=== PATIENT | female | born 1985 ===

== ENCOUNTER 2019-02-21 19:09 | Observation (INO) | payer MEDICAID ==
[2019-02-21 20:44] LABS: BASO # 0.1 K/uL (0.0-0.2); BASO % 0.5 % (0.0-2.0); EOS # 0.2 K/uL (0.0-0.7); EOS % 1.8 % (0.0-4.0); LYMPH # 2.1 K/uL (1.0-4.3); LYMPH % 16.4 % (20.0-40.0); MEAN CELL VOLUME 77.7 fL (81.0-99.0); MEAN CORPUSCULAR HEMOGLOBIN 25.6 pg (27.0-31.0); MEAN PLATELET VOLUME 8.5 fL (7.2-11.7); MONO # 0.9 K/uL (0.0-0.8); MONO % 7.2 % (0.0-10.0); NEUT # 9.7 K/uL (1.8-7.0); NEUT % 74.1 % (50.0-75.0); RBC 4.3 Mil/uL (3.80-5.20); RED CELL DISTRIBUTION WIDTH 16.9 % (11.5-14.5)
[2019-02-21] MEDS ORDERED: Sodium Chloride 0.9% 1,000 ML IV ONE (20:44)
[2019-02-21] MEDS ORDERED: Sodium Chloride 0.9% 1,000 ML ONE (20:49)
[2019-02-21 20:57] LABS: ALB/GLOB RATIO 1.3 (1.0-2.1); ALBUMIN 4.3 g/dL (3.5-5.0); ALT/SGPT 14 U/L (9-52); AST/SGOT 19 U/L (14-36); BLOOD UREA NITROGEN 12 mg/dL (7-17); GFR NON-AFRICAN AMERICAN > 60
--- NOTE | 2019-02-21 21:40 | C.PDOC ---
Time Seen by Provider: 02/21/19 19:41 Chief Complaint (Nursing): Headache Past Medical History Vital Signs: Last Vital Signs Temp 98.4 F 02/21/19 19:28 Pulse 74 02/21/19 19:28 Resp 14 02/21/19 19:28 BP 100/64 02/21/19 19:28 Pulse Ox 98 02/21/19 19:28 - Medical History PMH: Diabetes (Controlled, lost weight, not taking any medications ), Hyperthyroidism, Hypothyroidism Surgical History: Appendectomy - [facility] INJECT/INFUSE NEC (09/11/14) Family History: States: Unknown Family Hx - Social History Hx Alcohol Use: No Hx Substance Use: No ED Course And Treatment - Laboratory Results Result Diagrams: 02/21/19 20:35 02/21/19 20:35 Lab Results: Total Bilirubin 0.3 mg/dL (0.2-1.3) 02/21/19 20:35 AST 19 U/L (14-36) 02/21/19 20:35 ALT 14 U/L (9-52) 02/21/19 20:35 Alkaline Phosphatase 115 U/L (38-126) 02/21/19 20:35 Total Protein 7.7 g/dL (6.3-8.3) 02/21/19 20:35 Albumin 4.3 g/dL (3.5-5.0) 02/21/19 20:35 Globulin 3.4 gm/dL (2.2-3.9) 02/21/19 20:35 Albumin/Globulin Ratio 1.3 (1.0-2.1) 02/21/19 20:35 O2 Sat by Pulse Oximetry: 98 Medical Decision Making Medical Decision Makin discussed with Dr Wilkerson, recommends admission for brain mri +/- contrast. Disposition - Disposition Disposition: HOSPITALIZED Disposition Time: 04:57 Condition: GOOD Forms: [facility] (Uzbek) - Clinical Impression Clinical Impression: Headache, Sinusitis
[2019-02-21] MEDS ORDERED: Iodixanol 320 mg/ml 150 ml Bottle IV ONE (23:15)
[2019-02-22] MEDS ORDERED: Amoxicillin-Clav 875-125 mg Tab PO STA (04:54)
[2019-02-22] MEDS ORDERED: Amoxicillin-Clav 500-125 mg Tab PO ONE (05:09)
[2019-02-22] MEDS ORDERED: Amoxicillin-Clav 875-125 mg Tab PO ONE (05:12)
--- NOTE | 2019-02-22 05:34 | CP.PCM.HP ---
<Pankaj Crow P - Last Filed: 02/22/19 06:58> Meds Allergies/Adverse Reactions: Allergies Allergy/AdvReac Type Severity Reaction Status Date / Time No Known Allergies Allergy Verified 02/21/19 19:31 Results - Vital Signs Recent Vital Signs: Last Vital Signs Temp 98.4 F 02/22/19 06:00 Pulse 85 02/22/19 06:00 Resp 20 02/22/19 06:00 BP 102/66 02/22/19 06:00 Pulse Ox 96 02/22/19 06:00 - Labs Result Diagrams: 02/21/19 20:35 02/21/19 20:35 Labs: Laboratory Results - last 24 hr 02/21/19 02/21/19 20:35 20:35 WBC 13.0 H RBC 4.30 Hgb 11.0 Hct 33.4 L MCV 77.7 L MCH 25.6 L MCHC 33.0 RDW 16.9 H Plt Count 255 MPV 8.5 Neut % (Auto) 74.1 Lymph % (Auto) 16.4 L Prentiss % (Auto) 7.2 Eos % (Auto) 1.8 Baso % (Auto) 0.5 Neut # (Auto) 9.7 H Lymph # (Auto) 2.1 Prentiss # (Auto) 0.9 H Eos # (Auto) 0.2 Baso # (Auto) 0.1 ESR 53 H Sodium 138 Potassium 4.1 Chloride 102 Carbon Dioxide 29 Anion Gap 11 BUN 12 Creatinine 0.7 Est GFR ( Amer) > 60 Est GFR (Non-Af Amer) > 60 Random Glucose 100 Calcium 9.0 Total Bilirubin 0.3 AST 19 ALT 14 Alkaline Phosphatase 115 Total Protein 7.7 Albumin 4.3 Globulin 3.4 Albumin/Globulin Ratio 1.3 Attending/Attestation - Attestation I have personally seen and examined this patient.: Yes I have fully participated in the care of the patient.: Yes I have reviewed all pertinent clinical information: Yes Notes (Text): 02/22/19 06:59 Assessment * left sided facial pain from acute sinusitis involving maxillary, ethmoid, mastoid air cells, left middle ear * temporal muscle mild spasm due to above * chronic left occipital area pain * H/o cervical OA recent steroid inj about 3 wks back * Obese Plan * Abx augmentin * antiinflammatory, ppi * decongestent * ENT eval * Neurology has been consulted and recommended MRI * See orders for detail. <Di Ortiz P - Last Filed: 02/22/19 07:57> History of Present Illness - History of Present Illness History of Present Illness: H&P for Dr. Crow. 33 year old female presents to ED for severe headache over the L eye for the pa st 2 days. Pain is intermittent and described as heaviness. Treatment with Motrin and Excedrin has provided no relief. Patient also reports intermittent dizziness, nausea, runny nose, subjective fever, chills, and mild L ear pain for the last 2 days. Patient denies eye discharge, slurred speech, vomiting, change in hearing. Patient also reports a L occipital headache for the last 7 months since getting an epidural for childbirth, as well as numbness to her R hand for the past month, for which she is following a back specialist an receives cervical injections. PMHx: headaches, cervical and lumber disc problems-unspecified PSHx: appendectomy at 8 years old, ovarian cyst removal 13 years old Meds: Denies Allergies: NKDA Social: Denies tobacco, alcohol and illicit drugs, works as a cashiers supervisor Family hx: Maternal grandmother-DM; paternal grandmother- stomach cancer PMD: [facility] Review of Systems: -Gen: + subjective fever,+ chills, + headache, No lethargy, No weakness. -HEENT: + dizziness, No change in vision, No change in hearing, No sore throat, No dysphagia, No nasal congestion, No mucous. -Cardio: No chest pain, No palpitations, No lower extremity edema, No orthopnea. -Resp: No cough, No dyspnea, No hemoptysis, No wheezing, No pain on inspiration. -GI: No abdominal pain, + nausea, No vomiting, No diarrhea/constipation, No hematochezia, No hematemesis. -: No dysuria, No urinary freq, No incontinence, No hematuria, No change in urinary stream. -MSK: No back pain, No muscle weakness, No radiating pain. -Skin: No itching, No rash, No lesions. -Neuro: No confusion, + numbness, No tingling, No focal weakness, No syncope. -Psych: No anxiety, No depression, No H/I, No S/I, No hallucinations. Present on Admission - Present on Admission Any Indicators Present on Admission: No Past Patient History - Infectious Disease Hx of Infectious Diseases: None - Past Social History Smoking Status: Never Smoked - NEUROLOGICAL Other/Comment: headaches - ENDOCRINE/METABOLIC Hx Hyperthyroidism: Yes Hx Hypothyroidism: Yes - GENITOURINARY/GYNECOLOGICAL Other/Comment: Ovarian Cyst - PSYCHIATRIC Hx Substance Use: No - SURGICAL HISTORY Hx Appendectomy: Yes - ANESTHESIA Hx Anesthesia: Yes Hx Anesthesia Reactions: Yes Physical Exam - Constitutional Appears: Non-toxic, No Acute Distress - Head Exam Head Exam: ATRAUMATIC, NORMOCEPHALIC - Eye Exam Eye Exam: EOMI, Normal appearance, PERRL. absent: Nystagmus Pupil Exam: NORMAL ACCOMODATION - ENT Exam ENT Exam: Mucous Membranes Moist Additional comments: Tenderness to palpation of L maxillary sinus and L pinna - Neck Exam Neck exam: Positive for: Full Rom, Normal Inspection - Respiratory Exam Respiratory Exam: Clear to Auscultation Bilateral, NORMAL BREATHING PATTERN. absent: Rales, Rhonchi, Wheezes - Cardiovascular Exam Cardiovascular Exam: REGULAR RHYTHM, +S1, +S2 - GI/Abdominal Exam GI & Abdominal Exam: Normal Bowel Sounds, Soft. absent: Tenderness - Neurological Exam Neurological exam: Alert, Oriented x3 Additional comments: Diminished sensation to trigeminal V2 distribution on the L otherwise, cranial nerves intact. 5/5 muscle strength in all extremities, sensation intact in all extremities. - Psychiatric Exam Psychiatric exam: Normal Affect, Normal Mood - Skin Skin Exam: Dry, Normal Color, Warm Results - Vital Signs Recent Vital Signs: Last Vital Signs Temp 98.6 F 02/22/19 03:10 Pulse 88 02/22/19 03:10 Resp 16 02/22/19 03:10 BP 100/63 02/22/19 03:10 Pulse Ox 98 02/22/19 04:58 - Labs Result Diagrams: 02/21/19 20:35 02/21/19 20:35 Labs: Laboratory Results - last 24 hr 02/21/19 02/21/19 20:35 20:35 WBC 13.0 H RBC 4.30 Hgb 11.0 Hct 33.4 L MCV 77.7 L MCH 25.6 L MCHC 33.0 RDW 16.9 H Plt Count 255 MPV 8.5 Neut % (Auto) 74.1 Lymph % (Auto) 16.4 L Prentiss % (Auto) 7.2 Eos % (Auto) 1.8 Baso % (Auto) 0.5 Neut # (Auto) 9.7 H Lymph # (Auto) 2.1 Prentiss # (Auto) 0.9 H Eos # (Auto) 0.2 Baso # (Auto) 0.1 ESR 53 H Sodium 138 Potassium 4.1 Chloride 102 Carbon Dioxide 29 Anion Gap 11 BUN 12 Creatinine 0.7 Est GFR ( Amer) > 60 Est GFR (Non-Af Amer) > 60 Random Glucose 100 Calcium 9.0 Total Bilirubin 0.3 AST 19 ALT 14 Alkaline Phosphatase 115 Total Protein 7.7 Albumin 4.3 Globulin 3.4 Albumin/Globulin Ratio 1.3 Assessment & Plan - Assessment and Plan (Free Text) Assessment: 33 year old female presents with sinusitis Plan: Sinusitis -CT head: Acute on chronic sinusitis, minimal effusion L middle ear (see full report) -Neuro consult -MRI brain -ENT consult -Augmentin 875-125 PO Q12H -[id number] Q6H PRN fever -Ibuprofen 600mg Q6H PRN pain/inflammation -NS @100mls/hour -Oxymetazoline 2 puffs Q12H PPx -Protonix 40 -SCD -Heparin 5000 SC Q8H - Regular diet Discussed with Dr. Mignon Ortiz, PGY1
[2019-02-22 06:08] VITALS: RESP 20
[2019-02-22] MEDS ORDERED: Sodium Chloride 0.9% 1,000 ML IV SCH (06:30)
[2019-02-22] MEDS ORDERED: Oxymetazoline 0.05% Nasal Spray (30 ml) NS SCH (07:15)
--- NOTE | 2019-02-22 08:56 | CP.PCM.PN ---
Subjective - Date & Time of Evaluation Date of Evaluation: 02/22/19 Time of Evaluation: 08:56 - Subjective Subjective: PGY-1 Medicine Progress Note for Dr. Mcclellan Patient seen and examined sitting by bedside this AM. No acute overnight events reported. Patient continues to endorse L sided facial pain, along location of sinuses, as well as mild L facial numbness. Patient states that since her epidural for childbirth and subsequent epidural blood patch 7 months ago, she has been experiencing daily headaches at the base of her head radiating down her neck. Of note, patient also has history of cervical arthritis. No other acute somatic complaints at this time. Objective - Vital Signs/Intake and Output Vital Signs (last 24 hours): Temp Pulse Resp BP Pulse Ox 98.4 F 86 20 140/80 97 02/22/19 08:11 02/22/19 08:11 02/22/19 08:11 02/22/19 08:11 02/22/19 08:11 - Medications Medications: Current Medications Acetaminophen (Tylenol 325mg Tab) 650 mg PO Q6 PRN PRN Reason: Headache Amoxicillin/Clavulanate Potassium (Augmentin 875 Mg-125 Mg Tab) 1 tab PO Q12H CARLOS; Protocol Heparin Sodium (Porcine) (Heparin) 5,000 units SC Q8 CARLOS Sodium Chloride (Sodium Chloride 0.9%) 1,000 mls @ 100 mls/hr IV .Q10H CARLOS Last Admin: 02/22/19 06:48 Dose: 100 mls/hr Ibuprofen (Motrin Tab) 600 mg PO Q6H PRN PRN Reason: Pain, moderate (4-7) Oxymetazoline HCl (Afrin 0.05%) 1 ml NS Q12H CARLOS Pantoprazole Sodium (Protonix Inj) 40 mg IVP DAILY CARLOS Saccharomyces Boulardii (Florastor) 250 mg PO BID CARLOS - Labs Labs: 02/21/19 20:35 02/21/19 20:35 - Constitutional Appears: Non-toxic, No Acute Distress - Head Exam Head Exam: ATRAUMATIC, NORMAL INSPECTION, NORMOCEPHALIC - Eye Exam Eye Exam: EOMI, Normal appearance, PERRL Pupil Exam: NORMAL ACCOMODATION - ENT Exam ENT Exam: Mucous Membranes Moist, Normal Exam Additional comments: TTP along L frontal, maxillary sinuses - Neck Exam Neck Exam: Full ROM, Normal Inspection Additional comments: paraspinal hypertonicity Pain elicited with neck extension - Respiratory Exam Respiratory Exam: Clear to Ausculation Bilateral, NORMAL BREATHING PATTERN. absent: Accessory Muscle Use, Rales, Rhonchi, Wheezes, Respiratory Distress, Stridor - Cardiovascular Exam Cardiovascular Exam: REGULAR RHYTHM, +S1, +S2 - GI/Abdominal Exam GI & Abdominal Exam: Soft, Normal Bowel Sounds. absent: Distended, Firm, Guarding, Rigid, Tenderness, Rebound - Extremities Exam Extremities Exam: Full ROM, Normal Capillary Refill, Normal Inspection. absent: Calf Tenderness, Pedal Edema - Back Exam Back Exam: NORMAL INSPECTION - Neurological Exam Neurological Exam: Alert, Awake, CN II-XII Intact, Normal Gait, Oriented x3 - Skin Skin Exam: Dry, Intact, Normal Color, Warm Assessment and Plan - Assessment and Plan (Free Text) Assessment: 33 year old female with pmhx of chronic occipital headaches, cervical OA with unspecific disc herniation presenting with acute on chronic pansinusitis. Plan: Pansinusitis -f/u ENT (Dr. Doe) recs -Neurology (Dr. Neal) recs appreciated -Brain MRI: no acute intracranial pathology; chronic pansinusitis, worse in L maxillary sinus. Superimposed acute sinusitis in R maxillary sinus and L sphenoid chamber -f/u further recs -Augmentin 875-125 mg PO q12H -Oxymetazoline 2 puffs Q12H -Tylenol prn for fever -Ibuprofen 600 mg q6 prn for pain/inflammation Hx of Headaches Hx Cervical spine dysfunction -CT Head with contrast (02/22): No evidence of acute intracranial hemorrhage or large acute infarct. No enhancing lesions. -tylenol prn PPx, Diet, Disposition -DVT ppx: scds, heparin -GI ppx: protonix 40 mg IV daily -Diet: regular diet Case discussed with Dr. Eleuterio Ochoa DO, PGY-1
--- NOTE | 2019-02-22 09:33 | CT ---
Date of service: 02/22/2019 PROCEDURE: CT HEAD WITH CONTRAST HISTORY: left sided headache. temporal pain. elevated esr COMPARISON: None available. TECHNIQUE: Axial computed tomography images were obtained through the head/brain with intravenous contrast. Contrast dose: 100 cc Visipaque 320 contrast material. Radiation dose: Total exam DLP = 1225.56 mGy-cm. This CT exam was performed using one or more of the following dose reduction techniques: Automated exposure control, adjustment of the mA and/or kV according to patient size, and/or use of iterative reconstruction technique. FINDINGS: HEMORRHAGE: No intracranial hemorrhage. BRAIN: No mass, mass effect or edema. No abnormal intracranial enhancement. No atrophy or chronic microvascular ischemic changes. VENTRICLES: Unremarkable. No hydrocephalus. CALVARIUM: Unremarkable. PARANASAL SINUSES: Complete opacification left maxillary sinus with moderate mucosal thickening right maxillary sinus. There is also mild to moderate mucosal thickening ethmoid air complex and sphenoid sinus.. MASTOID AIR CELLS: The mastoid air complexes are underpneumatized and sclerotic. There is also partial opacification of at least 1 left inferior mastoid air cells OTHER FINDINGS: None. IMPRESSION: No evidence of acute intracranial hemorrhage or large acute infarct. No enhancing lesions.
[2019-02-22] MEDS: Saccharomyces Boulardi 250 mg Cap PO SCH ×2 (10:19→17:01)
[2019-02-22] MEDS: Oxymetazoline 0.05% Nasal Spray (30 ml) NS SCH ×2 (10:38→21:25)
--- NOTE | 2019-02-22 11:06 | MRI ---
Date of service: 02/22/2019 PROCEDURE: MRI BRAIN WITHOUT CONTRAST HISTORY: Headache, sinusitis COMPARISON: Noncontrast head CT from 02/22/2019. TECHNIQUE: Multiplanar, multisequence MR images of the brain were obtained without intravenous contrast enhancement. FINDINGS: HEMORRHAGE: None DWI: No evidence of an acute or early subacute infarction. BRAIN PARENCHYMA: There are mild chronic microangiopathic changes. There is no mass, mass effect or abnormal extra-axial fluid collection. There is no territorial infarction. The midline sagittal structures are normal. VENTRICLES: The ventricles are normal in size, shape and configuration. CRANIUM: Unremarkable. ORBITS: Grossly unremarkable. PARANASAL SINUSES/MASTOIDS: There is severe polypoid mucosal thickening in the left maxillary sinus and moderate polypoid mucosal thickening in the right maxillary sinus, left sphenoid chamber and ethmoid air cells and mild mucosal thickening in the left frontal sinus. There is fluid in the right maxillary sinus and aerosolized secretions in the left sphenoid chamber. There are trace mastoid effusions. VASCULAR SYSTEM: There are normal signal voids in the larger intracranial arteries. OTHER FINDINGS: None. IMPRESSION: 1. No acute intracranial abnormality. 2. Chronic pansinusitis, worse in the left maxillary sinus. Superimposed acute sinusitis in the right maxillary sinus and left sphenoid chamber is a consideration. Clinical follow-up is advised.
--- NOTE | 2019-02-22 11:28 | CP.PCM.CON ---
<Ruby Chauhan - Last Filed: 02/22/19 15:10> History of Present Illness - History of Present Illness History of Present Illness: PGY-1 Neuro Consult Note for Dr. Neal Patient is a 33 year old female with PMH of chronic occipital headaches, cervical and lumbar disc issues - unspecified is admitted for acute on chronic sinusitis. Neuro was consulted for persistent headache. Patient states that since her epidural for childbirth and subsequent epidural blood patch 7 months ago, she has been experiencing daily headaches at the base of her head radiating down her neck. She also experienced an episode of numbness in her R hand that lasted about 1 hours for which a back specialist gave her a cervical injection 3 weeks ago. Denies numbness, tingling, weakness, fatigue, chest pain, shortness of breath, photophobia, phonophobia. Of note, patient is currently . PMH: chronic occipital headaches, cervical and lumbar disc issues - unspecified Med: denies All: NKDA PSxHx: Appendectomy, Ovarian cyst removal, L Knee arthroscopy, Epidural blood patch FamHx: Maternal grandmother - DM, Paternal grandmother - stomach CA SocHx: Denies tobacco, alcohol, illicit drug use. PMD: [facility] [place] Review of Systems - Constitutional Constitutional: Headache. absent: Chills, Fever - EENT Eyes: Blurred Vision. absent: Discharge, Photophobia, Sees Flashes, Spots in Vision - Neurological Neurological: Disequilibrium, Headaches. absent: Abnormal Gait, Abnormal Hearing, Abnormal Speech, Burning Sensations, Confusion, Convulsions, Dizziness, Numbness, Focal Weakness, Frequent Falls, Loss of Vision, Paresthesias, Sensory Deficit, Syncope, Tingling, Weakness Past Patient History - Infectious Disease Hx of Infectious Diseases: None - Past Social History Smoking Status: Never Smoked Alcohol: None Drugs: Denies - NEUROLOGICAL Other/Comment: headaches - ENDOCRINE/METABOLIC Hx Hyperthyroidism: Yes Hx Hypothyroidism: Yes - GENITOURINARY/GYNECOLOGICAL Other/Comment: Ovarian Cyst - PSYCHIATRIC Hx Substance Use: No - SURGICAL HISTORY Hx Appendectomy: Yes - ANESTHESIA Hx Anesthesia: Yes Hx Anesthesia Reactions: Yes Meds Home Medications: Home Medication List Medication Instructions Recorded Confirmed Type Amoxicillin/Clavulanate [Augmentin 1 tab PO Q12H #7 tab 02/22/19 Rx 875 MG-125 MG Tab] Allergies/Adverse Reactions: Allergies Allergy/AdvReac Type Severity Reaction Status Date / Time No Known Allergies Allergy Verified 02/21/19 19:31 - Medications Medications: Current Medications Acetaminophen (Tylenol 325mg Tab) 650 mg PO Q6 PRN PRN Reason: Headache Amoxicillin/Clavulanate Potassium (Augmentin 875 Mg-125 Mg Tab) 1 tab PO Q12H COUNTS INCLUDE 234 BEDS AT THE [facility]; Protocol Heparin Sodium (Porcine) (Heparin) 5,000 units SC Q8 COUNTS INCLUDE 234 BEDS AT THE [facility] Sodium Chloride (Sodium Chloride 0.9%) 1,000 mls @ 100 mls/hr IV .Q10H COUNTS INCLUDE 234 BEDS AT THE [facility] Last Admin: 02/22/19 06:48 Dose: 100 mls/hr Ibuprofen (Motrin Tab) 600 mg PO Q6H PRN PRN Reason: Pain, moderate (4-7) Oxymetazoline HCl (Afrin 0.05%) 1 ml NS Q12H COUNTS INCLUDE 234 BEDS AT THE [facility] Last Admin: 02/22/19 10:38 Dose: 1 spr Pantoprazole Sodium (Protonix Inj) 40 mg IVP DAILY COUNTS INCLUDE 234 BEDS AT THE [facility] Last Admin: 02/22/19 10:19 Dose: 40 mg Saccharomyces Boulardii (Florastor) 250 mg PO BID COUNTS INCLUDE 234 BEDS AT THE [facility] Last Admin: 02/22/19 10:19 Dose: 250 mg Physical Exam - Constitutional Appears: Well, Non-toxic Additional comments: breast pump in place - Head Exam Head Exam: ATRAUMATIC, NORMOCEPHALIC - Eye Exam Eye Exam: EOMI, Normal appearance, PERRL Pupil Exam: NORMAL ACCOMODATION - ENT Exam ENT Exam: Mucous Membranes Moist - Neck Exam Neck exam: Positive for: Full Rom, Tenderness (paraspinal). Negative for: L ymphadenopathy Additional comments: paraspinal hypertonicity - Respiratory Exam Respiratory Exam: Clear to Auscultation Bilateral, NORMAL BREATHING PATTERN - Cardiovascular Exam Cardiovascular Exam: REGULAR RHYTHM, +S1, +S2 - GI/Abdominal Exam GI & Abdominal Exam: Normal Bowel Sounds, Soft. absent: Tenderness Additional comments: morbidly obese - Extremities Exam Extremities exam: Positive for: normal capillary refill, normal inspection. Negative for: calf tenderness, pedal edema - Neurological Exam Neurological exam: Alert, CN II-XII Intact, Normal Gait, Oriented x3, Reflexes Normal - Psychiatric Exam Psychiatric exam: Anxious, Normal Affect, Normal Mood - Skin Skin Exam: Dry, Intact, Normal Color, Warm Results - Vital Signs Recent Vital Signs: Last Vital Signs Temp 98.4 F 02/22/19 08:11 Pulse 86 02/22/19 08:11 Resp 20 02/22/19 08:11 BP 140/80 02/22/19 08:11 Pulse Ox 97 02/22/19 08:11 - Labs Result Diagrams: 02/22/19 11:16 02/22/19 11:16 Labs: Laboratory Results - last 24 hr 02/21/19 02/21/19 20:35 20:35 WBC 13.0 H RBC 4.30 Hgb 11.0 Hct 33.4 L MCV 77.7 L MCH 25.6 L MCHC 33.0 RDW 16.9 H Plt Count 255 MPV 8.5 Neut % (Auto) 74.1 Lymph % (Auto) 16.4 L [place] % (Auto) 7.2 Eos % (Auto) 1.8 Baso % (Auto) 0.5 Neut # (Auto) 9.7 H Lymph # (Auto) 2.1 [place] # (Auto) 0.9 H Eos # (Auto) 0.2 Baso # (Auto) 0.1 ESR 53 H Sodium 138 Potassium 4.1 Chloride 102 Carbon Dioxide 29 Anion Gap 11 BUN 12 Creatinine 0.7 Est GFR ( Amer) > 60 Est GFR (Non-Af Amer) > 60 Random Glucose 100 Calcium 9.0 Total Bilirubin 0.3 AST 19 ALT 14 Alkaline Phosphatase 115 Total Protein 7.7 Albumin 4.3 Globulin 3.4 Albumin/Globulin Ratio 1.3 Assessment & Plan - Assessment and Plan (Free Text) Assessment: 33yo F with PMH of chronic occipital headaches, cervical and lumbar disc issues - unspecified is admitted for acute on chronic sinusitis. Neuro was consulted for persistent headache. Plan: Cervicogenic Headache complicated by acute on chronic sinusitis CT Head with contrast (02/22): No evidence of acute intracranial hemorrhage or large acute infarct. No enhancing lesions. MRI Brain without contrast (02/22): No acute intracranial abnormality. Chronic pansinusitis, worse in the left maxillary sinus. Superimposed acute sinusitis in the right maxillary sinus and left sphenoid chamber is a consideration. - neurological exam unremarkable - f/u MRI CSpine without contrast. Patient's last was over 1 year ago - start Magnesium Oxide 400mg po BID d/w Dr. Ángel Chauhan PGY-1 - Date & Time Date: 02/22/19 Time: 12:00 <Aram Neal - Last Filed: 02/22/19 15:58> Meds - Medications Medications: Current Medications Acetaminophen (Tylenol 325mg Tab) 650 mg PO Q6 PRN PRN Reason: Headache Amoxicillin/Clavulanate Potassium (Augmentin 875 Mg-125 Mg Tab) 1 tab PO Q12H [facility]; Protocol Heparin Sodium (Porcine) (Heparin) 5,000 units SC Q8 [facility] Last Admin: 02/22/19 13:21 Dose: Not Given Ibuprofen (Motrin Tab) 600 mg PO Q6H PRN PRN Reason: Pain, moderate (4-7) Last Admin: 02/22/19 14:51 Dose: 600 mg Magnesium Oxide (Mag-Ox) 400 mg PO BID COUNTS INCLUDE 234 BEDS AT THE [facility] Oxymetazoline HCl (Afrin 0.05%) 1 ml NS Q12H COUNTS INCLUDE 234 BEDS AT THE [facility] Last Admin: 02/22/19 10:38 Dose: 1 spr Pantoprazole Sodium (Protonix Inj) 40 mg IVP DAILY COUNTS INCLUDE 234 BEDS AT THE [facility] Last Admin: 02/22/19 10:19 Dose: 40 mg Saccharomyces Boulardii (Florastor) 250 mg PO BID COUNTS INCLUDE 234 BEDS AT THE [facility] Last Admin: 02/22/19 10:19 Dose: 250 mg Results - Vital Signs Recent Vital Signs: Last Vital Signs Temp 98.4 F 02/22/19 08:11 Pulse 86 02/22/19 08:11 Resp 20 02/22/19 08:11 BP 140/80 02/22/19 08:11 Pulse Ox 97 02/22/19 08:11 - Labs Result Diagrams: 02/22/19 11:16 02/22/19 11:16 Labs: Laboratory Results - last 24 hr 02/21/19 02/21/19 02/22/19 20:35 20:35 11:16 WBC 13.0 H 14.0 H RBC 4.30 4.28 Hgb 11.0 11.1 Hct 33.4 L 33.9 L MCV 77.7 L 79.2 L MCH 25.6 L 26.0 L MCHC 33.0 32.8 L RDW 16.9 H 17.0 H Plt Count 255 290 MPV 8.5 8.8 Neut % (Auto) 74.1 89.1 H Lymph % (Auto) 16.4 L 8.3 L [place] % (Auto) 7.2 2.3 Eos % (Auto) 1.8 0.0 Baso % (Auto) 0.5 0.3 Neut # (Auto) 9.7 H 12.5 H Lymph # (Auto) 2.1 1.2 [place] # (Auto) 0.9 H 0.3 Eos # (Auto) 0.2 0.0 Baso # (Auto) 0.1 0.0 Neutrophils % (Manual) 81 H Band Neutrophils % 9 H Lymphocytes % (Manual) 8 L Monocytes % (Manual) 2 Platelet Estimate Normal Large Platelets Present Anisocytosis (manual) Slight ESR 53 H Sodium 138 Potassium 4.1 Chloride 102 Carbon Dioxide 29 Anion Gap 11 BUN 12 Creatinine 0.7 Est GFR ( Amer) > 60 Est GFR (Non-Af Amer) > 60 Random Glucose 100 Calcium 9.0 Total Bilirubin 0.3 AST 19 ALT 14 Alkaline Phosphatase 115 Total Protein 7.7 Albumin 4.3 Globulin 3.4 Albumin/Globulin Ratio 1.3 02/22/19 11:16 WBC RBC Hgb Hct MCV MCH MCHC RDW Plt Count MPV Neut % (Auto) Lymph % (Auto) [place] % (Auto) Eos % (Auto) Baso % (Auto) Neut # (Auto) Lymph # (Auto) [place] # (Auto) Eos # (Auto) Baso # (Auto) Neutrophils % (Manual) Band Neutrophils % Lymphocytes % (Manual) Monocytes % (Manual) Platelet Estimate Large Platelets Anisocytosis (manual) ESR Sodium 138 Potassium 4.0 Chloride 101 Carbon Dioxide 27 Anion Gap 14 BUN 10 Creatinine 0.6 L Est GFR ( Amer) > 60 Est GFR (Non-Af Amer) > 60 Random Glucose 221 H D Calcium 9.2 Total Bilirubin 0.4 AST 25 ALT 11 Alkaline Phosphatase 111 Total Protein 8.1 Albumin 4.4 Globulin 3.7 Albumin/Globulin Ratio 1.2 Attending/Attestation - Attestation I have personally seen and examined this patient.: Yes I have fully participated in the care of the patient.: Yes I have reviewed all pertinent clinical information: Yes Notes (Text): I agree with the assessment and plan. The headache appears to be cervico-genic and tension related. Will try magnesium oxide 400 mg BID since she is breast feeding and will order MRI of the cervical spine without contrast.
[2019-02-22 11:45] LABS: BASO % 0.3 % (0.0-2.0); HEMOGLOBIN 11.1 g/dL (11.0-16.0); LYMPH # 1.2 K/uL (1.0-4.3); LYMPH % 8.3 % (20.0-40.0); MEAN CELL VOLUME 79.2 fL (81.0-99.0); MEAN CORPUSCULAR HGB CONC 32.8 g/dL (33.0-37.0); MEAN PLATELET VOLUME 8.8 fL (7.2-11.7); MONO # 0.3 K/uL (0.0-0.8); MONO % 2.3 % (0.0-10.0); NEUT # 12.5 K/uL (1.8-7.0); NEUT % 89.1 % (50.0-75.0); PLATELET COUNT 290 K/uL (130-400); RBC 4.28 Mil/uL (3.80-5.20)
[2019-02-22 12:02] LABS: ALB/GLOB RATIO 1.2 (1.0-2.1); ALBUMIN 4.4 g/dL (3.5-5.0); ALT/SGPT 11 U/L (9-52); AST/SGOT 25 U/L (14-36); BLOOD UREA NITROGEN 10 mg/dL (7-17); CALCIUM 9.2 mg/dl (8.6-10.4); GFR NON-AFRICAN AMERICAN > 60
[2019-02-22 12:33] LABS: BANDS 9 % (0-2); LYMPHOCYTE 8 % (20-40); MONOCYTE 2 % (0-10); NEUTROPHIL 81 % (50-75); PLATELET ESTIMATE NORMAL (NORMAL); TOTAL CELLS COUNTED 100
[2019-02-22 12:34] LABS: ANISOCYTOSIS SLIGHT; LARGE PLATELETS PRESENT
[2019-02-22] MEDS: Amoxicillin-Clav 875-125 mg Tab PO SCH (17:01)
[2019-02-22] MEDS: Magnesium Oxide 400 mg Tab UD PO SCH (17:01)
--- NOTE | 2019-02-22 19:07 | MRI ---
Date of service: 02/22/2019 PROCEDURE: MR CERVICAL SPINE WITHOUT CONTRAST HISTORY: neck pain, chronic headache COMPARISON: None available. TECHNIQUE: Multiecho multiplanar sequences were performed through the cervical spine without the use of intravenous contrast. FINDINGS: There is a straightening of the cervical spine and loss of the normal lordosis which could be due to muscle spasm. Craniocervical junction unremarkable. Vertebral body heights preserved. No marrow signal abnormality. Normal cervical cord. No paraspinal abnormality. C2-C3: No disc herniation, spinal canal stenosis or neural foraminal narrowing. C3-C4: No disc herniation, spinal canal stenosis or neural foraminal narrowing. C4-C5: No disc herniation, spinal canal stenosis or neural foraminal narrowing. C5-C6: No disc herniation, spinal canal stenosis or neural foraminal narrowing. C6-C7: No disc herniation, spinal canal stenosis or neural foraminal narrowing. C7-T1: No disc herniation, spinal canal stenosis or neural foraminal narrowing. OTHER FINDINGS: None. IMPRESSION: Straightening of the cervical spine and loss of the normal lordosis which could be due to muscle spasm. No evidence of disc herniation or significant spinal or neural foraminal narrowing. No evidence of cord compression.
[2019-02-23] MEDS: Amoxicillin-Clav 875-125 mg Tab PO SCH (04:46)
[2019-02-23 06:32] LABS: BASO % 0.4 % (0.0-2.0); EOS # 0.2 K/uL (0.0-0.7); EOS % 1.5 % (0.0-4.0); HEMOGLOBIN 10.3 g/dL (11.0-16.0); LYMPH # 2.6 K/uL (1.0-4.3); LYMPH % 24.3 % (20.0-40.0); MEAN CELL VOLUME 78.7 fL (81.0-99.0); MEAN CORPUSCULAR HEMOGLOBIN 26.1 pg (27.0-31.0); MEAN CORPUSCULAR HGB CONC 33.2 g/dL (33.0-37.0); MEAN PLATELET VOLUME 8.6 fL (7.2-11.7); MONO # 0.7 K/uL (0.0-0.8); MONO % 6.1 % (0.0-10.0); NEUT # 7.3 K/uL (1.8-7.0); NEUT % 67.7 % (50.0-75.0); NRBC % 0.1 % (0.0-2.0); RBC 3.95 Mil/uL (3.80-5.20); RED CELL DISTRIBUTION WIDTH 17.3 % (11.5-14.5); WHITE BLOOD COUNT 10.8 K/uL (4.8-10.8)
[2019-02-23 06:50] LABS: ALB/GLOB RATIO 1.1 (1.0-2.1); ALBUMIN 3.9 g/dL (3.5-5.0); ALT/SGPT 18 U/L (9-52); AST/SGOT 18 U/L (14-36); BLOOD UREA NITROGEN 13 mg/dL (7-17); CALCIUM 8.8 mg/dl (8.6-10.4); GFR NON-AFRICAN AMERICAN > 60
--- NOTE | 2019-02-23 07:08 | CP.PCM.PN ---
Subjective - Date & Time of Evaluation Date of Evaluation: 02/23/19 Time of Evaluation: 07:08 - Subjective Subjective: PGY-1 Medicine Progress Note for Dr. Mcclellan Objective - Vital Signs/Intake and Output Vital Signs (last 24 hours): Temp Pulse Resp BP Pulse Ox 98.7 F 81 20 132/68 97 02/23/19 00:00 02/23/19 00:00 02/23/19 00:00 02/23/19 00:00 02/23/19 00:00 Intake and Output: 02/23/19 02/23/19 06:59 18:59 Intake Total 200 Balance 200 - Medications Medications: Current Medications Acetaminophen (Tylenol 325mg Tab) 650 mg PO Q6 PRN PRN Reason: Headache Amoxicillin/Clavulanate Potassium (Augmentin 875 Mg-125 Mg Tab) 1 tab PO Q12H [facility]; Protocol Last Admin: 02/23/19 04:46 Dose: 1 tab Heparin Sodium (Porcine) (Heparin) 5,000 units SC Q8 [facility] Last Admin: 02/23/19 05:11 Dose: Not Given Ibuprofen (Motrin Tab) 600 mg PO Q6H PRN PRN Reason: Pain, moderate (4-7) Last Admin: 02/23/19 04:46 Dose: 600 mg Magnesium Oxide (Mag-Ox) 400 mg PO BID [facility] Last Admin: 02/22/19 17:01 Dose: 400 mg Oxymetazoline HCl (Afrin 0.05%) 1 ml NS Q12H [facility] Last Admin: 02/22/19 21:25 Dose: 1 spr Pantoprazole Sodium (Protonix Inj) 40 mg IVP DAILY [facility] Last Admin: 02/22/19 10:19 Dose: 40 mg Saccharomyces Boulardii (Florastor) 250 mg PO BID [facility] Last Admin: 02/22/19 17:01 Dose: 250 mg - Labs Labs: 02/23/19 06:12 02/23/19 06:12
--- NOTE | 2019-02-23 09:10 | CP.PCM.DIS ---
Provider - Provider Date of Admission: 02/22/19 04:45 Attending physician: Angelia Mcclellan MD Consults: 02/22/19 04:01 Neurology Consult Routine Comment: Consulting Provider: Isabelle Wilkerson Consulting Physician: Isabelle Wilkerson Reason for Consult: left side headache, temporal 02/22/19 06:59 ENT [Otolaryngology Consult] Routine Consulting Provider: Lars Doe Consulting Physician: Lars Doe Reason for Consult: Sinusitis, ear effusion 02/22/19 07:16 Otolaryngology Consult Routine Consulting Provider: Lars Doe Consulting Physician: Lars Doe Reason for Consult: Sinusitis Time Spent in preparation of Discharge (in minutes): 40 Hospital Course - Lab Results Lab Results: Most Recent Lab Values WBC 10.8 K/uL (4.8-10.8) 02/23/19 06:12 RBC 3.95 Mil/uL (3.80-5.20) 02/23/19 06:12 Hgb 10.3 g/dL (11.0-16.0) L 02/23/19 06:12 Hct 31.1 % (34.0-47.0) L 02/23/19 06:12 MCV 78.7 fL (81.0-99.0) L 02/23/19 06:12 MCH 26.1 pg (27.0-31.0) L 02/23/19 06:12 MCHC 33.2 g/dL (33.0-37.0) 02/23/19 06:12 RDW 17.3 % (11.5-14.5) H 02/23/19 06:12 Plt Count 250 K/uL (130-400) 02/23/19 06:12 MPV 8.6 fL (7.2-11.7) 02/23/19 06:12 Neut % (Auto) 67.7 % (50.0-75.0) 02/23/19 06:12 Lymph % (Auto) 24.3 % (20.0-40.0) 02/23/19 06:12 [place] % (Auto) 6.1 % (0.0-10.0) 02/23/19 06:12 Eos % (Auto) 1.5 % (0.0-4.0) 02/23/19 06:12 Baso % (Auto) 0.4 % (0.0-2.0) 02/23/19 06:12 Neut # (Auto) 7.3 K/uL (1.8-7.0) H 02/23/19 06:12 Lymph # (Auto) 2.6 K/uL (1.0-4.3) 02/23/19 06:12 [place] # (Auto) 0.7 K/uL (0.0-0.8) 02/23/19 06:12 Eos # (Auto) 0.2 K/uL (0.0-0.7) 02/23/19 06:12 Baso # (Auto) 0.0 K/uL (0.0-0.2) 02/23/19 06:12 Neutrophils % (Manual) 81 % (50-75) H 02/22/19 11:16 Band Neutrophils % 9 % (0-2) H 02/22/19 11:16 Lymphocytes % (Manual) 8 % (20-40) L 02/22/19 11:16 Monocytes % (Manual) 2 % (0-10) 02/22/19 11:16 Platelet Estimate Normal (NORMAL) 02/22/19 11:16 Large Platelets Present 02/22/19 11:16 Anisocytosis (manual) Slight 02/22/19 11:16 ESR 53 mm/hr (0-20) H 02/21/19 20:35 Sodium 137 mmol/L (132-148) 02/23/19 06:12 Potassium 4.2 mmol/L (3.6-5.2) 02/23/19 06:12 Chloride 105 mmol/L (98-107) 02/23/19 06:12 Carbon Dioxide 29 mmol/L (22-30) 02/23/19 06:12 Anion Gap 8 (10-20) L 02/23/19 06:12 BUN 13 mg/dL (7-17) 02/23/19 06:12 Creatinine 0.6 mg/dL (0.7-1.2) L 02/23/19 06:12 Est GFR ( Amer) > 60 02/23/19 06:12 Est GFR (Non-Af Amer) > 60 02/23/19 06:12 Random Glucose 114 mg/dL (65-105) H D 02/23/19 06:12 Calcium 8.8 mg/dl (8.6-10.4) 02/23/19 06:12 Phosphorus 4.3 mg/dL (2.5-4.5) 02/23/19 06:12 Magnesium 2.1 mg/dL (1.6-2.3) 02/23/19 06:12 Total Bilirubin 0.6 mg/dL (0.2-1.3) 02/23/19 06:12 AST 18 U/L (14-36) 02/23/19 06:12 ALT 18 U/L (9-52) 02/23/19 06:12 Alkaline Phosphatase 98 U/L (38-126) 02/23/19 06:12 Total Protein 7.3 g/dL (6.3-8.3) 02/23/19 06:12 Albumin 3.9 g/dL (3.5-5.0) 02/23/19 06:12 Globulin 3.4 gm/dL (2.2-3.9) 02/23/19 06:12 Albumin/Globulin Ratio 1.1 (1.0-2.1) 02/23/19 06:12 - Hospital Course Hospital Course: HPI: 33 year old female presents to ED for severe headache over the L eye for the past 2 days. Pain is intermittent and described as heaviness. Treatment with Motrin and Excedrin has provided no relief. Patient also reports intermittent dizziness, nausea, runny nose, subjective fever, chills, and mild L ear pain for the last 2 days. Patient denies eye discharge, slurred speech, vomiting, change in hearing. Patient also reports a L occipital headache for the last 7 months since getting an epidural for childbirth, as well as numbness to her R hand for the past month, for which she is following a back specialist an receives cervical injections. During course of admission: Neurology (Dr. Neal) and ENT (Dr. Doe) were consulted. CT head with contrast obtained demonstrated no evidence of acute intracranial hemorrhage or infarct. MRI brain demonstrated no acute intracranial pathology. Chronic pansinusitis was noted, worst in L maxillary sinus, with superimposed acute sinusitis in the right maxillary sinus and left sphenoid chamber. Patient was started on empiric Augmentin as well as oxymetazoline. Magnesium oxide was started for occipital headache, suspected cervicogenic in origin, per Neurology recommendations. MRI of the C-spine obtained per Neurology was negative for any acute pathology. Facial pain/tenderness decreased with course of augmentin. Patient remained afebrile with no leukocytosis or hemodynamic instability. Patient was cleared from an ENT perspective, with recommendations to continue augmentin for a total of 2 weeks. Patient is medically stable for discharge to home, as per Dr. Mcclellan. Patient is instructed to continue taking Augmentin as currently prescribed for a total of 2 weeks. If patient develops abdominal symptoms or rash, please stop taking medication and follow up with your primary care provider for alternative regimen. Patient has been instructed to follow up with her [facility] for chronic occipital pain which began after bloodpatch was administered. Patient has also been instructed to follow up at the [facility] within 3-5 days of discharge for further monitoring and continued care. Contact information has been provided below. Please call to schedule an a ppointment. [facility] [place] [address] If symptoms worsen or recur, please return to ED immediately. The following is a summary of hospital course. For full detail, please refer to EMR. - Date & Time of H&P Date of H&P: 02/23/19 Time of H&P: 15:33 Discharge Exam - Head Exam Head Exam: ATRAUMATIC, NORMAL INSPECTION, NORMOCEPHALIC - Eye Exam Eye Exam: EOMI, Normal appearance, PERRL Pupil Exam: NORMAL ACCOMODATION - ENT Exam ENT Exam: Normal Exam Additional comments: TTP along L frontal, maxillary sinuses - Neck Exam Neck exam: Full Rom, Normal Inspection - Respiratory Exam Respiratory Exam: Clear to PA & Lateral, NORMAL BREATHING PATTERN, UNREMARKABLE. absent: Accessory Muscle Use, Respiratory Distress - Cardiovascular Exam Cardiovascular Exam: REGULAR RHYTHM, +S1, +S2 - GI/Abdominal Exam GI & Abdominal Exam: Normal Bowel Sounds, Soft, Unremarkable. absent: Distended, Firm, Guarding, Hernia, Rebound, Tenderness - Extremities Exam Extremities exam: full ROM, normal capillary refill, normal inspection, pedal pulses present - Back Exam Back exam: NORMAL INSPECTION - Neurological Exam Neurological exam: Alert, CN II-XII Intact, Normal Gait, Oriented x3 - Skin Skin Exam: Dry, Intact, Normal Color, Warm Discharge Plan - Discharge Medications Prescriptions: Amoxicillin/Clavulanate [Augmentin 875 MG-125 MG] 1 tab PO Q12H 14 Days tab Magnesium Oxide [Mag-Ox] 400 mg PO BID 14 Days tab - Follow Up Plan Condition: GOOD Disposition: HOME/ ROUTINE Instructions: Sinusitis, Adult (DC), Sinus Headache (DC), Amoxicillin and Clavulanate, Magnesium Oxide Additional Instructions: Patient is medically stable for discharge to home, as per Dr. Mcclellan. Patient is instructed to continue taking Augmentin as currently prescribed for a total of 2 weeks. If patient develops abdominal symptoms or rash, please stop taking medication and follow up with your primary care provider for alternative regimen. Patient has been instructed to follow up with her [facility] for chronic occipital pain which began after bloodpatch was administered. Patient has also been instructed to follow up at the [facility] within 3-5 days of discharge for further monitoring and continued care. Contact information has been provided below. Please call to schedule an appointment. [facility] [place] [address] If symptoms worsen or recur, please return to ED immediately.
[2019-02-23] MEDS: Oxymetazoline 0.05% Nasal Spray (30 ml) NS SCH (09:48)
[2019-02-23] MEDS: Magnesium Oxide 400 mg Tab UD PO SCH (09:49)
[2019-02-23] MEDS: Saccharomyces Boulardi 250 mg Cap PO SCH (10:11)
--- NOTE | 2019-02-23 11:10 | CP.PCM.PN ---
Subjective - Date & Time of Evaluation Date of Evaluation: 02/23/19 Time of Evaluation: 10:00 - Subjective Subjective: PGY-1 Neuro Progress note for Dr[address] Neal Patient was seen and examined today at bedside in no acute distress. Nurse reports no overnight events. Patient reports her occipital headache is relieved by the addition of new medication, although it is still there. Her frontal headache associated with her acute sinusitis is still unchanged. Denies numbness, tingling, dizziness, n/v. Objective - Vital Signs/Intake and Output Vital Signs (last 24 hours): Temp Pulse Resp BP Pulse Ox 98 F 86 20 139/89 96 02/23/19 08:00 02/23/19 08:00 02/23/19 08:00 02/23/19 08:00 02/23/19 08:00 Intake and Output: 02/23/19 02/23/19 06:59 18:59 Intake Total 200 Balance 200 - Medications Medications: Current Medications Acetaminophen (Tylenol 325mg Tab) 650 mg PO Q6 PRN PRN Reason: Headache Amoxicillin/Clavulanate Potassium (Augmentin 875 Mg-125 Mg Tab) 1 tab PO Q12H [facility]; Protocol Last Admin: 02/23/19 04:46 Dose: 1 tab Heparin Sodium (Porcine) (Heparin) 5,000 units SC Q8 [facility] Last Admin: 02/23/19 05:11 Dose: Not Given Ibuprofen (Motrin Tab) 600 mg PO Q6H PRN PRN Reason: Pain, moderate (4-7) Last Admin: 02/23/19 04:46 Dose: 600 mg Magnesium Oxide (Mag-Ox) 400 mg PO BID [facility] Last Admin: 02/23/19 09:49 Dose: 400 mg Oxymetazoline HCl (Afrin 0.05%) 1 ml NS Q12H [facility] Last Admin: 02/23/19 09:48 Dose: 1 spr Pantoprazole Sodium (Protonix Inj) 40 mg IVP DAILY [facility] Last Admin: 02/23/19 09:49 Dose: 40 mg Saccharomyces Boulardii (Florastor) 250 mg PO BID [facility] Last Admin: 02/23/19 10:11 Dose: 250 mg - Labs Labs: 02/23/19 06:12 02/23/19 06:12 - Constitutional Appears: Well, No Acute Distress - Head Exam Head Exam: ATRAUMATIC, NORMOCEPHALIC - Eye Exam Eye Exam: EOMI, Normal appearance, PERRL Pupil Exam: NORMAL ACCOMODATION - ENT Exam ENT Exam: Mucous Membranes Moist - Neck Exam Neck Exam: Full ROM, Tenderness (paraspinal). absent: Lymphadenopathy Additional comments: paraspinal hypertonicity - Respiratory Exam Respiratory Exam: Clear to Ausculation Bilateral, NORMAL BREATHING PATTERN - Cardiovascular Exam Cardiovascular Exam: REGULAR RHYTHM, +S1, +S2 - GI/Abdominal Exam GI & Abdominal Exam: Normal Bowel Sounds. absent: Tenderness Additional comments: morbidly obese - Extremities Exam Extremities Exam: Normal Capillary Refill, Normal Inspection. absent: Calf Tenderness - Neurological Exam Neurological Exam: Alert, Awake, CN II-XII Intact, Normal Gait, Oriented x3, Ref lexes Normal Neuro motor strength exam: Left Upper Extremity: 5, Right Upper Extremity: 5, Left Lower Extremity: 5, Right Lower Extremity: 5 - Psychiatric Exam Psychiatric exam: Anxious - Skin Skin Exam: Dry, Intact, Normal Color, Warm Assessment and Plan - Assessment and Plan (Free Text) Assessment: 33yo F with PMH of chronic occipital headaches, cervical and lumbar disc issues - unspecified is admitted for acute on chronic sinusitis. Neuro was consulted for persistent headache. Plan: Cervicogenic Headache complicated by acute on chronic sinusitis CT Head with contrast (02/22): No evidence of acute intracranial hemorrhage or large acute infarct. No enhancing lesions. MRI Brain without contrast (02/22): No acute intracranial abnormality. Chronic pansinusitis, worse in the left maxillary sinus. Superimposed acute sinusitis in the right maxillary sinus and left sphenoid chamber is a consideration. MRI CSpine without contrast (02/22): Straightening of the cervical spine and loss of the normal lordosis which could be due to muscle spasm. No evidence of disc herniation or significant spinal or neural foraminal narrowing. No evidence of cord compression. - neurological exam unremarkable - cont Magnesium Oxide 400mg po BID - patient can follow up with her preferred back/spine doctor d/w Dr. Ángel Chauhan PGY-1
[2019-02-23] MEDS ORDERED: Influenza Vaccine 60 mcg/0.5 mL SYR (4YR UP) IM ONE (13:59)
[2019-02-23] MEDS ORDERED: Pneumococcal 23-Valent Vaccine IM ONE (14:01)
[2019-02-23 15:51] VITALS: BP 90/65; PULSE 81; TEMP 97.9; O2SAT 97
--- NOTE | 2019-02-23 21:37 | OP ---
PROCEDURE DATE: 02/23/2019 PREOPERATIVE DIAGNOSIS: Sinusitis. POSTOPERATIVE DIAGNOSIS: Sinusitis. DESCRIPTION OF PROCEDURE: The patient was placed in seated position. The nose was decongested using afrin. The scope was inserted into the nasal cavity. The inferior and middle turbinates as well as the inferior and middle meatus were brought into view. Moderate edema of the mucosa was on both sides as well as purulent discharge from the middle meatus on both sides was noted. No masses or lesions were noted. The scope was removed. The patient is noted to have sinusitis which is consistent with the CAT scan findings. Since the patient has only had symptoms for a week of acute sinusitis, she should be continued on antibiotics for a total of two weeks. Lars Doe MD MTDJessica
== END 2019-02-23 15:55 | disposition home or self-care (01) ==
LOC: C.ER 19:09 → C.3T 02-22 04:45
PROVIDERS: ADMIT Internal Medicine; ATTEND Internal Medicine
DX: J01.90 Acute sinusitis, unspecified (principal); J32.4 Chronic pansinusitis; E11.9 Type 2 diabetes mellitus without complications; E03.9 Hypothyroidism, unspecified; Z68.42 Body mass index [BMI] 45.0-49.9, adult
CPT/HCPCS: 36415; 70460; 70551; 72141; 80053; 81025; 83735; 84100; 85025; 85651; 96361; 96374; 96375; 96376; 99285; C9113; G0378; J1885; J2765; J7030; Q9967